=== PATIENT | male | born 1970 | race Caucasian/White ===

== ENCOUNTER 2016-10-11 13:59 | Emergency (ER) | payer SELFPAY ==
[2016-10-11 15:07] VITALS: BP 119/82
--- NOTE | 2016-10-11 15:33 | UC ---
Throat Pain/Nasal Khoi HPI - HPI Summary HPI Summary: pt presents with c/o nasal congestion , cough, sinus pressure, fever and generalized malaise X 5 days. - History of Current Complaint Chief Complaint: UCRespiratory Stated Complaint: COUGH/CONGESTION Time Seen by Provider: 10/11/16 15:28 Hx Obtained From: Patient Onset/Duration: Sudden Onset, Lasting Days, Still Present Severity: Mild Cough: Nonproductive Associated Signs & Symptoms: Positive: Sinus Discomfort, Other - nasal congestion Related History: Other (Noted In Comments) - asthma - Allergies/Home Medications Allergies/Adverse Reactions: Allergies Allergy/AdvReac Type Severity Reaction Status Date / Time Oxycodone Allergy Hives Verified 10/11/16 15:07 Home Medications: Home Medications Albuterol HFA INHALER* [Ventolin HFA Inhaler*] 2 puff INH Q4H PRN 10/11/16 [ History Confirmed 10/11/16] PMH/Surg Hx/FS Hx/Imm Hx Previously Healthy: Yes Respiratory History: Asthma - Surgical History Surgical History: Yes Surgery Procedure, Year, and Place: APPENDECTOMY A CHILD, left shoulder surgery 06/16/15 - Family History Known Family History: Positive: None, Unknown, Other - TOBACCCO ABUSE - Social History Alcohol Use: Weekly Alcohol Amount: WEEKEND Substance Use Type: None Smoking Status (MU): Heavy Every Day Tobacco Smoker Type: Cigarettes, Smokeless Tobacco Amount Used/How Often: 1/2 PPD and chews approx 3 cans per week Length of Time of Smoking/Using Tobacco: started at age 15 Have You Smoked in the Last Year: Yes Household Exposure Type: Cigarettes - Immunization History Most Recent Influenza Vaccination: MAR 2016 Most Recent Tetanus Shot: less than 10yrs; given at [facility] Review of Systems Constitutional: Fever, Chills, Fatigue Skin: Negative Eyes: Negative ENT: Other - nasal congestion, sinus pressure Respiratory: Cough Cardiovascular: Negative Gastrointestinal: Negative Genitourinary: Negative Motor: Negative Neurovascular: Negative Musculoskeletal: Negative Neurological: Negative Psychological: Negative All Other Systems Reviewed And Are Negative: Yes Physical Exam Triage Information Reviewed: Yes Appearance: Ill-Appearing Vital Signs: Initial Vital Signs Temp 97.9 F 10/11/16 14:57 Pulse 108 10/11/16 14:57 Resp 16 10/11/16 14:57 BP 119/82 10/11/16 14:57 Pulse Ox 100 10/11/16 14:57 Vital Signs Reviewed: Yes Eye Exam: Normal ENT: Positive: Nasal congestion, Other: - maxillary and frontal sinus tenderness Neck exam: Normal Respiratory Exam: Other Respiratory: Positive: Rhonchi - fine throughout Cardiovascular Exam: Normal Musculoskeletal Exam: Normal Neurological Exam: Normal Psychological Exam: Normal Skin Exam: Normal Throat Pain/Nasal Course/Dx - Differential Dx/Diagnosis Differential Diagnosis/HQI/PQRI: Sinusitis, URI Provider Diagnoses: bronchitis. allergic rhinitis Discharge - Discharge Plan Condition: Stable Disposition: HOME Prescriptions: Amoxicillin (*) [Amoxicillin 875 MG (*)] 875 mg PO Q12H #20 tab Loratadine & Pseudoephedrine [Loratadine/Pseudoephedrin 10-240 mg] 1 tab PO DAILY #14 tab predniSONE TAB* [Deltasone TAB*] 30 mg PO DAILY #9 tab Patient Education Materials: Acute Bronchitis (ED), Allergic Rhinitis (ED) Referrals: Ilya Mondragon MD [Primary Care Provider] - If Needed
== END 2016-10-11 15:50 | disposition home or self-care (01) ==
LOC: UCCORT 13:59
DX: J40 Bronchitis, not specified as acute or chronic (principal); J30.9 Allergic rhinitis, unspecified; Z88.5 Allergy status to narcotic agent; F17.220 Nicotine dependence, chewing tobacco, uncomplicated; F17.210 Nicotine dependence, cigarettes, uncomplicated
CPT/HCPCS: 99212; G0463

== ENCOUNTER 2017-04-01 09:19 | Emergency (ER) | payer SELFPAY ==
--- NOTE | 2017-04-01 09:39 | UC ---
Respiratory Complaint HPI - HPI Summary HPI Summary: 46 YEAR OLD MALE PRESENTS WITH COMPLAINS OF COUGH - History of Current Complaint Stated Complaint: UPPER RESPIRATORY Time Seen by Provider: 04/01/17 09:39 Hx Obtained From: Patient Onset/Duration: Lasting Days Severity Initially: Moderate Severity Currently: Moderate - Allergies/Home Medications Allergies/Adverse Reactions: Allergies Allergy/AdvReac Type Severity Reaction Status Date / Time Oxycodone Allergy Hives Verified 04/01/17 09:47 PMH/Surg Hx/FS Hx/Imm Hx Previously Healthy: Yes - Surgical History Surgical History: Yes Surgery Procedure, Year, and Place: APPENDECTOMY A CHILD, left shoulder surgery 06/16/15 - Family History Known Family History: Positive: None, Unknown, Other - TOBACCCO ABUSE - Social History Alcohol Use: Weekly Alcohol Amount: WEEKEND Substance Use Type: None Smoking Status (MU): Heavy Every Day Tobacco Smoker Type: Cigarettes, Smokeless Tobacco Amount Used/How Often: 1/2 PPD and chews approx 3 cans per week Length of Time of Smoking/Using Tobacco: started at age 15 Have You Smoked in the Last Year: Yes Household Exposure Type: Cigarettes - Immunization History Most Recent Influenza Vaccination: MAR 2016 Most Recent Tetanus Shot: less than 10yrs; given at [facility] Review of Systems Constitutional: Negative Skin: Negative Eyes: Negative ENT: Nasal Discharge, Sinus Congestion, Sinus Pain/Tenderness Respiratory: Cough Cardiovascular: Negative Gastrointestinal: Negative Genitourinary: Negative Motor: Negative Neurovascular: Negative Musculoskeletal: Negative Neurological: Negative Psychological: Negative All Other Systems Reviewed And Are Negative: Yes Physical Exam Triage Information Reviewed: Yes Vital Signs Reviewed: Yes Eye Exam: Normal ENT: Positive: Nasal congestion, Nasal drainage, Sinus tenderness Dental Exam: Normal Neck exam: Normal Neck: Positive: 1 Respiratory: Positive: Rhonchi, Wheezing Cardiovascular Exam: Normal Abdominal Exam: Normal Musculoskeletal Exam: Normal Neurological Exam: Normal Psychological Exam: Normal Skin Exam: Normal Respiratory Course/Dx - Differential Dx/Diagnosis Provider Diagnoses: COUGH. WHEEZING. CHEST CONGESTION Discharge - Discharge Plan Condition: Stable Disposition: HOME Prescriptions: Azithromyxin GEO (NF) [Z-Geo (Zithromax) 250 mg tabs #6] 2 tab PO .TODAY, THEN 1 DAILY #6 tab Benzonatate [TESSALON 200 MG CAP] 200 mg PO TID PRN #30 cap PRN Reason: Cough LoraTADine TAB(NF) [Claritin 10 MG TAB(NF)] 10 mg PO DAILY #30 tab Patient Education Materials: Allergic Rhinitis (ED) Referrals: Ilya Mondragon MD [Primary Care Provider] -
[2017-04-01 09:47] VITALS: BP 119/80
== END 2017-04-01 10:05 | disposition home or self-care (01) ==
LOC: UCCORT 09:19
DX: R05 Cough (principal); R09.89 Other specified symptoms and signs involving the circulatory and respiratory systems; R06.2 Wheezing; F17.210 Nicotine dependence, cigarettes, uncomplicated
CPT/HCPCS: 99212; G0463

== ENCOUNTER 2017-08-08 12:07 | Emergency (ER) | payer SELFPAY ==
[2017-08-08 13:24] VITALS: BP 144/88
[2017-08-08] MEDS ORDERED: Ibuprofen TAB* 400 MG PO ONE (13:46)
--- NOTE | 2017-08-08 13:48 | RAD ---
HISTORY: Right hand injury COMPARISONS: None VIEWS: 4, Frontal, lateral, and oblique views of the right hand FINDINGS: BONE DENSITY: Normal. BONES: There is a fracture of the head of the fifth metacarpal with approximately 60 degrees of volar angulation. JOINTS: There is no arthropathy. ALIGNMENT: There is no dislocation. SOFT TISSUES: Unremarkable. OTHER FINDINGS: None. IMPRESSION: ANGULATED FRACTURE OF THE HEAD OF THE FIFTH METACARPAL.
--- NOTE | 2017-08-08 13:50 | UC ---
Hand/Wrist HPI - HPI Summary HPI Summary: Pt c/o right hand pain, s/p punching a hard surface counter top from a standing position. Pt states he got angry and punched the counter. - History Of Current Complaint Chief Complaint: UCUpperExtremity Stated Complaint: (R) HAND INJURY Time Seen by Provider: 08/08/17 13:14 Hx Obtained From: Patient ?: No Onset/Duration: Sudden Onset Severity Initially: Severe Severity Currently: Moderate Pain Intensity: 10 Character Of Pain: Dull, Aching, Throbbing Aggravating Factor(s): Movement Alleviating Factor(s): Rest Associated Signs And Symptoms: Positive: Swelling Related History: Dominant Hand Right - Risk Factors Compartment Syndrome Risk Factors: Pain - Allergies/Home Medications Allergies/Adverse Reactions: Allergies Allergy/AdvReac Type Severity Reaction Status Date / Time oxycodone Allergy Hives Verified 08/08/17 13:25 PMH/Surg Hx/FS Hx/Imm Hx Previously Healthy: Yes - Surgical History Surgical History: Yes Surgery Procedure, Year, and Place: APPENDECTOMY A CHILD, left shoulder surgery 06/16/15 - Family History Known Family History: Positive: None, Unknown, Other - TOBACCCO ABUSE - Social History Occupation: Employed Full-time Lives: With Family Alcohol Use: Weekly Alcohol Amount: WEEKEND Substance Use Type: None Smoking Status (MU): Heavy Every Day Tobacco Smoker Type: Cigarettes, Smokeless Tobacco Amount Used/How Often: 1/2 PPD and chews approx 3 cans per week Length of Time of Smoking/Using Tobacco: started at age 15 Have You Smoked in the Last Year: Yes Household Exposure Type: Cigarettes - Immunization History Most Recent Influenza Vaccination: MAR 2016 Most Recent Tetanus Shot: less than 10yrs; given at [facility] Review of Systems Constitutional: Negative Skin: Negative Eyes: Negative ENT: Negative Respiratory: Negative Cardiovascular: Negative Gastrointestinal: Negative Genitourinary: Negative Motor: Decreased ROM - right hand Neurovascular: Negative Musculoskeletal: Arthralgia, Decreased ROM, Edema, Myalgia - right hand Neurological: Negative Psychological: Negative Is Patient Immunocompromised?: No All Other Systems Reviewed And Are Negative: Yes Physical Exam Triage Information Reviewed: Yes Appearance: Pain Distress Vital Signs: Initial Vital Signs Temp 97.8 F 08/08/17 13:16 Pulse 76 08/08/17 13:16 Resp 18 08/08/17 13:16 BP 144/88 08/08/17 13:16 Pulse Ox 99 08/08/17 13:16 Vital Signs Reviewed: Yes Eye Exam: Normal ENT Exam: Normal Neck exam: Normal Respiratory: Positive: No respiratory distress Musculoskeletal: Positive: Strength Limited @, ROM Limited @, Edema @ - 4th and 5th metacarpal, Diagnostics - Radiology No standard instances Radiology Interpretation Completed By: Radiologist - IMPRESSION: ANGULATED FRACTURE OF THE HEAD OF THE FIFTH METACARPAL. Hand/Wrist Course/Dx - Differential Dx/Diagnosis Differential Diagnosis/HQI/PQRI: Contusion, Fracture Provider Diagnoses: IMPRESSION: ANGULATED FRACTURE OF THE HEAD OF THE FIFTH METACARPAL. - Physician Notifications Discussed Patient Care With: Britney Castillo - referrred to Dr. Muir immediately. Dr. Gong unavailable Discharge - Sign-Out/Discharge Documenting (check all that apply): Discharge - Discharge Plan Condition: Stable Disposition: HOME Prescriptions: Ibuprofen TAB* [Motrin TAB* 800 MG] 800 mg PO Q6H PRN #20 tab PRN Reason: Pain Patient Education Materials: Boxer Fracture (ED) Referrals: sOcar Muir MD [Medical Doctor] - 08/09/17 11:00 am (Please go directly to Dr. Muir office today, 08/08/17 to set up a follow up appointment. ) Ilya Mondragon MD [Primary Care Provider] - If Needed - Billing Disposition and Condition Condition: STABLE Disposition: HOME
== END 2017-08-08 14:29 | disposition home or self-care (01) ==
LOC: UCCORT 12:07
DX: S62.396A Other fracture of fifth metacarpal bone, right hand, initial encounter for closed fracture (principal); W22.8XXA Striking against or struck by other objects, initial encounter; Y92.9 Unspecified place or not applicable; F17.210 Nicotine dependence, cigarettes, uncomplicated; F17.220 Nicotine dependence, chewing tobacco, uncomplicated; Z88.5 Allergy status to narcotic agent
CPT/HCPCS: 99213; A9270-GY; G0463

== ENCOUNTER → 2017-08-15 13:22 | Day surgery (SDC) | payer MEDICAID ==
[~2017-08-15 13:22] MED LIST: Buffered Lidocaine 0.9% SYRIN* 5 ML/SYR SYRINGE INTRADERM ONE; Buffered Lidocaine 0.9% SYRIN* 5 ML/SYR SYRINGE ONE; Bupivacaine 0.25% SDV* 30 ML ONE; Dexamethasone IV* 4 MG/ML 1 ML (4 MG) ONE; DiMENhydriNATE IV* 50 MG/ML VIAL IV PUSH PRN; Famotidine IV* 10 MG/ML 2 ML (20 mg) IV ONE; Famotidine IV* 10 MG/ML 2 ML (20 mg) ONE; HYDROcodone/ACETAMIN 5-325 MG* 1 TAB ONE; HYDROcodone/ACETAMIN 5-325 MG* 1 TAB PO PRN; HYDROmorphone INJ* 2 MG/ML CARPUJECT SYRINGE ONE; Ketorolac INJ* 30 MG/ML 1 ML VIAL ONE; Lidocaine 2% PF * 5 ML VIAL ONE; Midazolam* 1 MG/ML 5 ML VIAL (5 MG) ONE; Naloxone* 0.4 MG/ML 1 ML VIAL IV PRN; Ondansetron INJ* 2 MG/ML VIAL ONE; Propofol* 10 MG/ML 20 ML BTL IV PUSH ONE; ceFAZolin 1 GM VIAL(*) ONE; fentaNYL* 50 MCG/ML 2 ML VIAL (100 MCG VIAL) ONE
[2017-08-15] MEDS: HYDROmorphone INJ* 1 MG/ML CARPUJECT SYRINGE IV PRN ×5 (15:21→15:51)
[2017-08-15 16:38] VITALS: BP 124/76
--- NOTE | 2017-08-16 12:18 | RAD ---
INDICATION: Right hand fifth metacarpal. There is post reduction, displaced fracture of neck of fifth metacarpal, trauma COMPARISONS: August 08, 2017 TECHNIQUE: Fluoroscopy was provided for a surgical procedure. Total fluoroscopy time is: 43 seconds FINDINGS: Spot images demonstrated percutaneous fixation of the fifth metacarpal. IMPRESSION: FLUOROSCOPY WAS PROVIDED FOR A SURGICAL PROCEDURE CPT II Codes: G9500
--- NOTE | 2017-08-19 13:02 | OP ---
DATE OF OPERATION: 08/15/17 - [facility] DATE OF : 66 SURGEON: Oscar Muir MD THERMAL SPRAY OPERATOR: JT Moore ANESTHESIA: General. PRE-OP DIAGNOSIS: Right highly displaced fifth metacarpal neck fracture. POST-OP DIAGNOSIS: Right highly displaced fifth metacarpal neck fracture. OPERATIVE PROCEDURE: Closed reduction and percutaneous fixation of right fifth metacarpal neck fracture. INDICATIONS: Benoit has a right fifth metacarpal neck fracture that was near 90 degrees angulated. I have talked to him about his options; he wanted to proceed with surgery. I told them I prefer to proceed with closed reduction and percutaneous fixation. He understands the risks of stiffness, of infection. ESTIMATED BLOOD LOSS: 1 mL. COMPLICATIONS: None. FINDINGS: As expected. DESCRIPTION OF PROCEDURE: Benoit was seen in the preoperative holding area. The correct side, site, and procedure were identified. We came back to the operating room where the arm was pre-scrubbed and then prepped and draped in the usual fashion. A time-out was performed. I brought in the mini C-arm fluoroscopy. I performed a closed reduction maneuver, it was reduced nicely. I therefore brought in my 0.045 K-wires. I placed initial 0.045 K-wire from distal radial down the shaft of the bone to the subchondral bone. This provided good fixation. I supplemented this with a second K-wire from distal ulnar, exiting out proximal, radial, and palmarly. This had excellent fixation. Fluoroscopic imaging showed that the bone looked to be nicely aligned. I therefore bent and clipped the wires. The wires were dressed with Xeroform, 4x4s, sterile Webril, and ulnar gutter splint with the hand in the intrinsic plus position was applied. He was then taken to the recovery room in stable condition. [id number]/[facility] #: [id number] FAXTON HOSPITALSujit
== END | disposition home or self-care (01) ==
LOC: OR 13:22
PROVIDERS: ATTEND Orthopaedic Surgery Hand Surgery
DX: S62.336A Displaced fracture of neck of fifth metacarpal bone, right hand, initial encounter for closed fracture (principal); J45.909 Unspecified asthma, uncomplicated; Z72.0 Tobacco use; E66.01 Morbid (severe) obesity due to excess calories; W22.09XA Striking against other stationary object, initial encounter; Y92.9 Unspecified place or not applicable
CPT/HCPCS: 76000; C1776; J0690; J1100; J1170; J1885; J2250; J2405; J2704; J3010

== ENCOUNTER 2018-02-10 13:28 | Emergency (ER) | payer MEDICAID, OTHER ==
[2018-02-10 13:55] VITALS: BP 101/81
--- NOTE | 2018-02-10 15:57 | UC ---
Respiratory Complaint HPI - HPI Summary HPI Summary: 47-year-old male smoker presents with 3-4 days of cough, congestion, sore throat , runny nose and headaches. He's had body aches and chills but no demonstrated fevers. 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 He has not been around anyone that been ill and has not yet had his flu shot. - History of Current Complaint Chief Complaint: UCRespiratory Stated Complaint: RESP COMPLAINT Time Seen by Provider: 02/10/18 13:55 Hx Obtained From: Patient Pain Intensity: 5 Pain Scale Used: 0-10 Numeric - Allergies/Home Medications Allergies/Adverse Reactions: Allergies Allergy/AdvReac Type Severity Reaction Status Date / Time oxycodone Allergy Hives Verified 08/15/17 13:48 steroids AdvReac See Comment Uncoded 02/10/18 13:52 Home Medications: Home Medications Albuterol 0.5% CONC NEB.DARIEN* 1 mg .SEE ORDER Q6H PRN 02/10/18 [History Confirmed 02/10/18] PMH/Surg Hx/FS Hx/Imm Hx Previously Healthy: Yes - Surgical History Surgical History: Yes Surgery Procedure, Year, and Place: appendectomy as child - [place]. [place] shoulder rotator cuff [place] [facility] [place] - Family History Known Family History: Positive: Unknown, Other - TOBACCCO ABUSE - Social History Occupation: Employed Full-time Alcohol Use: Occasionally Alcohol Amount: reports 1-2 drinks per week Substance Use Type: None Smoking Status (MU): Heavy Every Day Tobacco Smoker Type: Cigarettes, Smokeless Tobacco Amount Used/How Often: 1/2 ppd and chews approx 3 tins per week for 30 years Length of Time of Smoking/Using Tobacco: started at age 15 Have You Smoked in the Last Year: Yes Household Exposure Type: Cigarettes - Immunization History Most Recent Influenza Vaccination: MAR 2016 Most Recent Tetanus Shot: less than 10yrs; given at [facility] Review of Systems Constitutional: Chills, Fatigue Skin: Negative ENT: Sore Throat, Nasal Discharge, Sinus Congestion Respiratory: Cough Cardiovascular: Negative Neurological: Headache All Other Systems Reviewed And Are Negative: Yes Physical Exam Triage Information Reviewed: Yes Appearance: Well-Appearing, No Pain Distress, Well-Nourished Vital Signs: Initial Vital Signs Temp 98.3 F 02/10/18 13:49 Pulse 96 02/10/18 13:49 Resp 20 02/10/18 13:49 BP 101/81 02/10/18 13:49 Pulse Ox 99 02/10/18 13:49 Vital Signs Reviewed: Yes Eyes: Positive: Conjunctiva Clear ENT: Positive: Hearing grossly normal, Pharyngeal erythema, Nasal congestion. Negative: Tonsillar swelling, Tonsillar exudate, Sinus tenderness Neck exam: Normal Neck: Positive: No Lymphadenopathy Respiratory: Positive: Lungs clear, Normal breath sounds Cardiovascular: Positive: RRR Musculoskeletal: Positive: Strength Intact, ROM Intact Skin Exam: Normal UC Diagnostic Evaluation - Laboratory O2 Sat by Pulse Oximetry: 99 Respiratory Course/Dx - Course Course Of Treatment: Patient with URI symptoms and no fever. Treat symptomatically. Steroids likely will help. Follow up primary care physician. - Differential Dx/Diagnosis Differential Diagnosis/HQI/PQRI: Lower Resp Infection, Other - URI, bronchitis Provider Diagnoses: Acute URI. Tobacco abuse Discharge - Sign-Out/Discharge Documenting (check all that apply): Patient Departure All imaging exams completed and their final reports reviewed: No Studies - Discharge Plan Condition: Improved Disposition: HOME Prescriptions: Guaifenesin/Pseudoephedrne HCl [Mucinex D ER Tablet] 1 each PO BID PRN #10 tab.er.12h PRN Reason: Congestion predniSONE TAB* [Deltasone 20 MG TAB*] 20 mg PO DAILY #6 tab Patient Education Materials: Acute Bronchitis (ED) Referrals: Ilya Mondragon MD [Primary Care Provider] - Additional Instructions: Cut back on smoking. Humidifier while you sleep. Take the steroid in the morning as it can cause insomnia. Do not take a decongestant before bed. This can do the same. Return with fever greater than 100.4, difficulty breathing, wheezing, new symptoms or other concerns. - Billing Disposition and Condition Condition: IMPROVED Disposition: Home - Attestation Statements Document Initiated by Salvador: No
== END 2018-02-10 14:09 | disposition home or self-care (01) ==
LOC: UCCORT 13:28
DX: J06.9 Acute upper respiratory infection, unspecified (principal); F17.210 Nicotine dependence, cigarettes, uncomplicated; Z88.5 Allergy status to narcotic agent; Z88.8 Allergy status to other drugs, medicaments and biological substances
CPT/HCPCS: 99212; G0463